=== PATIENT | female | born 1990 | race African-American/Black ===

== ENCOUNTER 2018-07-05 09:15 | Emergency (ER) | payer OTHER ==
[~2018-07-05] VITALS: Wt 88.9 kg
--- NOTE | ~2018-07-05 | EKG ---
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
--- NOTE | ~2018-07-05 | EKG ---
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
[~2018-07-05 09:15] MED LIST: BIRTH CONTROL; CLARITIN-D 10 M1 T21 PO; CLEOCIN HCL150 MG PO; CLINDAMYCIN150 MG PO; DOC-Q-LACE100 MG PO; FLONASE 0.05% 121 EA NAS; MACROBID100 M1 PO; NAPROSYN500 MG PO; NKHM; NO DAILY MEDS; PREDNICOT10 MG PO; PRENATAL1 TA1 PO; PRENATAL1 TA3 PO; Peridex 473 ML473 ML PO; TAMIFLU75 MG PO; TRAMADOL HCL50 MG PO; TRI LINYAH; TYLENOL EXTRA500 MG; VICODIN 5/500 505 MG PO; ZITHROMAX Z PA250 MG PO; ZOFRAN ODT4 MG SL; ZOFRAN4 MG PO; Zofran4 MG PO; [UNRECOGNIZED DRUG - OTHER] IM
[2018-07-05 09:31] LABS: BASO % 0.4 % (0.0-1.0); EOS # 0.1 10*3/uL (0.0-0.4); EOS % 1.3 % (1.0-4.0); HEMOGLOBIN 14.3 g/dl (12.0-16.0); LYMPH # 2.1 10*3/uL (1.3-4.4); LYMPH % 26.3 % (27.0-41.0); MEAN CELL VOLUME 90.5 fl (81.0-99.0); MEAN CORPUSCULAR HGB 30.1 pg (27.0-31.0); MEAN CORPUSCULAR HGB CONC 33.3 g/dl (33.0-37.0); MEAN PLATELET VOLUME 10.9 fl (9.6-12.3); MONO # 0.4 10*3/uL (0.1-1.0); MONO % 5.5 % (3.0-9.0); NEUT # 5.3 10*3/uL (2.3-7.9); PLATELET COUNT AUTOMATED 248 10*3/uL (130-400); RED BLOOD COUNT 4.75 10*6/uL (4.10-5.10); RED CELL DISTRI WIDTH 12.5 % (0-14.5)
[2018-07-05 09:44] LABS: ACT PARTIAL THROMBO TIME 23.7 SECONDS (20.8-31.5)
[2018-07-05 09:49] LABS: ALBUMIN 3.6 gm/dl (3.1-4.5); ALKALINE PHOSPHATASE 80 U/L (45-117); BUN 9 mg/dl (7-24); CHLORIDE 108 mmol/L (98-107); CREATININE 1.04 mg/dL (0.55-1.02); POTASSIUM 4.2 mmol/L (3.5-5.1); SGOT/AST 11 IU/L (3-35); SGPT/ALT 21 U/L (12-78); SODIUM 140 mmol/L (136-145); TOTAL PROTEIN 7.4 gm/dL (6.4-8.2)
[2018-07-05 09:54] LABS: TROPONIN I < 0.015 ng/ml (<0.045)
[2018-07-05] MEDS ORDERED: VISTARIL25 MG PO (13:03)
== END 2018-07-05 13:05 | disposition home or self-care (01) ==
LOC: ED 09:15
PROVIDERS: Emergency Medicine
DX: F41.9 Anxiety disorder, unspecified (principal); R07.89 Other chest pain; Z88.0 Allergy status to penicillin; Z88.1 Allergy status to other antibiotic agents

== ENCOUNTER 2018-07-07 17:13 | Emergency (ER) | payer OTHER ==
--- NOTE | ~2018-07-07 | EKG ---
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
[~2018-07-07 17:13] MED LIST changes: +VISTARIL25 MG PO
[2018-07-07 17:38] LABS: BASO % 0.4 % (0.0-1.0); EOS # 0.2 10*3/uL (0.0-0.4); EOS % 1.4 % (1.0-4.0); HEMATOCRIT 43.1 % (37.0-47.0); HEMOGLOBIN 14.3 g/dl (12.0-16.0); LYMPH # 3.3 10*3/uL (1.3-4.4); LYMPH % 30.6 % (27.0-41.0); MEAN CELL VOLUME 88.9 fl (81.0-99.0); MEAN CORPUSCULAR HGB 29.5 pg (27.0-31.0); MEAN CORPUSCULAR HGB CONC 33.2 g/dl (33.0-37.0); MEAN PLATELET VOLUME 11.3 fl (9.6-12.3); MONO # 0.7 10*3/uL (0.1-1.0); MONO % 6.2 % (3.0-9.0); NEUT # 6.5 10*3/uL (2.3-7.9); NEUT % 60.9 % (47.0-73.0); PLATELET COUNT AUTOMATED 263 10*3/uL (130-400); RED BLOOD COUNT 4.85 10*6/uL (4.10-5.10); RED CELL DISTRI WIDTH 12.2 % (0-14.5); WHITE BLOOD COUNT 10.6 10*3/uL (4.8-10.8)
[2018-07-07 17:49] LABS: ACT PARTIAL THROMBO TIME 23.2 SECONDS (20.8-31.5); INTERNATIONAL NORM RATIO 0.9 (2.0-3.5)
[2018-07-07 17:54] LABS: ALBUMIN 3.5 gm/dl (3.1-4.5); ALKALINE PHOSPHATASE 87 U/L (45-117); BUN 7 mg/dl (7-24); CHLORIDE 107 mmol/L (98-107); CREATININE 0.98 mg/dL (0.55-1.02); LIPASE 101 U/L (73-393); POTASSIUM 4.1 mmol/L (3.5-5.1); SGOT/AST 11 IU/L (3-35); SGPT/ALT 21 U/L (12-78); SODIUM 138 mmol/L (136-145); TOTAL PROTEIN 7.4 gm/dL (6.4-8.2); TROPONIN I < 0.015 ng/ml (<0.045)
[2018-07-07] MEDS ORDERED: NAPROSYN500 MG PO (18:07)
== END 2018-07-07 18:21 | disposition home or self-care (01) ==
LOC: ED 17:13
PROVIDERS: Nurse Practitioner Family
DX: R09.1 Pleurisy (principal); F41.9 Anxiety disorder, unspecified; Z88.0 Allergy status to penicillin; Z88.1 Allergy status to other antibiotic agents; Z79.899 Other long term (current) drug therapy

== ENCOUNTER → 2018-07-15 | Outpatient (CLI) | payer OTHER | END | disposition home or self-care (01) | LOC: RESCLI 01:20 | DX: Z09 Encounter for follow-up examination after completed treatment for conditions other than malignant neoplasm (principal); E66.9 Obesity, unspecified; E55.9 Vitamin D deficiency, unspecified; Z79.899 Other long term (current) drug therapy; Z88.0 Allergy status to penicillin ==

== ENCOUNTER 2019-03-15 19:09 | Emergency (ER) | payer OTHER ==
[~2019-03-15] VITALS: Ht 162.5 cm; Wt 95.3 kg
[2019-03-15] MEDS ORDERED: CLINDAMYCIN HC300 MG PO (19:42)
[2019-03-15] MEDS ORDERED: IBUPROFEN600 MG PO (19:42)
[2019-03-15] MEDS ORDERED: DIFLUCAN150 MG PO (19:43)
== END 2019-03-15 20:19 | disposition home or self-care (01) ==
LOC: ED 19:09
DX: K02.9 Dental caries, unspecified (principal); Z88.0 Allergy status to penicillin; Z88.1 Allergy status to other antibiotic agents; Z79.899 Other long term (current) drug therapy

== ENCOUNTER 2019-04-17 17:16 | Emergency (ER) | payer OTHER ==
[~2019-04-17] VITALS: Ht 162.5 cm; Wt 97.5 kg
[~2019-04-17 17:16] MED LIST changes: +CLINDAMYCIN HC300 MG PO; +DIFLUCAN150 MG PO; +IBUPROFEN600 MG PO
[2019-04-17 18:02] LABS: BILIRUBIN NEGATIVE (NEGATIVE); BLOOD NEGATIVE (NEGATIVE); CLARITY CLEAR (CLEAR); COLOR YELLOW (YELLOW); GLUCOSE NEGATIVE (NEGATIVE); KETONE NEGATIVE (NEGATIVE); LEUKO ESTERASE 1+ (NEGATIVE); NITRITE NEGATIVE (NEGATIVE); SPECIFIC GRAVITY <= 1.005 (1.005-1.030); UROBILINOGEN 0.2 E.U./dl (0.2-1.0)
[2019-04-17 18:06] LABS: BASO % 0.2 % (0.0-1.0); EOS % 0.3 % (1.0-4.0); HEMATOCRIT 40.8 % (37.0-47.0); HEMOGLOBIN 13.4 g/dl (12.0-16.0); LYMPH # 1.4 10*3/uL (1.3-4.4); LYMPH % 11.7 % (27.0-41.0); MEAN CELL VOLUME 91.9 fl (81.0-99.0); MEAN CORPUSCULAR HGB 30.2 pg (27.0-31.0); MEAN CORPUSCULAR HGB CONC 32.8 g/dl (33.0-37.0); MEAN PLATELET VOLUME 10.9 fl (9.6-12.3); MONO # 0.4 10*3/uL (0.1-1.0); MONO % 3.7 % (3.0-9.0); NEUT # 10.1 10*3/uL (2.3-7.9); NEUT % 83.7 % (47.0-73.0); PLATELET COUNT AUTOMATED 260 10*3/uL (130-400); RED BLOOD COUNT 4.44 10*6/uL (4.10-5.10); RED CELL DISTRI WIDTH 12.5 % (0-14.5)
[2019-04-17 18:12] LABS: BACTERIA 1+; EPITHELIAL CELLS TNTC
[2019-04-17 18:22] LABS: ALBUMIN 3.6 gm/dl (3.1-4.5); ALKALINE PHOSPHATASE 77 U/L (45-117); BUN 7 mg/dl (7-24); CHLORIDE 110 mmol/L (98-107); CREATININE 0.98 mg/dL (0.55-1.02); SGOT/AST 15 IU/L (3-35); SGPT/ALT 22 U/L (12-78); SODIUM 140 mmol/L (136-145); TOTAL PROTEIN 6.9 gm/dL (6.4-8.2)
[2019-04-17] MEDS ORDERED: Meclizine25 MG PO (19:40)
[2019-04-17] MEDS ORDERED: MACROBID100 M1 PO (19:40)
== END 2019-04-17 19:48 | disposition home or self-care (01) ==
LOC: ED 17:16
PROVIDERS: Nurse Practitioner Family
DX: N39.0 Urinary tract infection, site not specified (principal); R42 Dizziness and giddiness; G43.909 Migraine, unspecified, not intractable, without status migrainosus; J45.909 Unspecified asthma, uncomplicated; Z88.0 Allergy status to penicillin; Z88.1 Allergy status to other antibiotic agents

== ENCOUNTER 2022-10-07 13:42 | Emergency (ER) | payer MEDICAID ==
[~2022-10-07] VITALS: Wt 90.7 kg
[~2022-10-07 13:42] MED LIST changes: +Meclizine25 MG PO
[2022-10-07 14:58] LABS: BASO % 0.6 % (0.0-1.0); EOS # 0.1 10*3/uL (0.0-0.4); HEMATOCRIT 42.9 % (37.0-47.0); LYMPH % 27.8 % (27.0-41.0); MEAN CELL VOLUME 89.7 fl (81.0-99.0); MEAN CORPUSCULAR HGB 30.3 pg (27.0-31.0); MEAN CORPUSCULAR HGB CONC 33.8 g/dl (33.0-37.0); MEAN PLATELET VOLUME 11.1 fl (9.6-12.3); MONO # 0.4 10*3/uL (0.1-1.0); MONO % 5.1 % (3.0-9.0); NEUT # 4.5 10*3/uL (2.3-7.9); NEUT % 63.8 % (47.0-73.0); PLATELET COUNT AUTOMATED 255 10*3/uL (130-400); RED BLOOD COUNT 4.78 10*6/uL (4.10-5.10); RED CELL DISTRI WIDTH 11.9 % (0-14.5); WHITE BLOOD COUNT 7.1 10*3/uL (4.8-10.8)
[2022-10-07 15:15] LABS: ALKALINE PHOSPHATASE 73 U/L (46-116); BUN 5 mg/dl (9-23); CHLORIDE 108 mmol/L (98-107); POTASSIUM 4.8 mmol/L (3.4-5.1); SGPT/ALT 11 U/L (10-49); TOTAL PROTEIN 6.6 gm/dL (6.0-8.0)
[2022-10-07] MEDS ORDERED: KETOROLAC10 MG PO (16:05)
== END 2022-10-07 16:24 | disposition home or self-care (01) ==
LOC: ED 13:42
PROVIDERS: Student in an Organized Health Care Education/Training Program
DX: G43.909 Migraine, unspecified, not intractable, without status migrainosus (principal); R11.10 Vomiting, unspecified; J45.909 Unspecified asthma, uncomplicated; Z88.0 Allergy status to penicillin; Z88.1 Allergy status to other antibiotic agents; Z98.890 Other specified postprocedural states

== ENCOUNTER 2023-07-23 01:20 | Emergency (ER) | payer MEDICAID ==
[~2023-07-23] VITALS: Ht 172.7 cm; Wt 102.1 kg
[~2023-07-23 01:20] MED LIST changes: +KETOROLAC10 MG PO
[2023-07-23] MEDS ORDERED: LORazepam 1 MG TAB PO ONE (01:25)
== END 2023-07-23 03:16 | disposition home or self-care (01) ==
LOC: ED 01:20
DX: F41.9 Anxiety disorder, unspecified (principal); J45.909 Unspecified asthma, uncomplicated; G43.909 Migraine, unspecified, not intractable, without status migrainosus; Z88.0 Allergy status to penicillin; Z88.1 Allergy status to other antibiotic agents; Z98.890 Other specified postprocedural states

== ENCOUNTER 2023-09-15 18:37 | Emergency (ER) | payer MEDICAID ==
[~2023-09-15] VITALS: Ht 162.5 cm; Wt 104.3 kg
[2023-09-15] MEDS ORDERED: hydrOXYzine pamoate 25 MG CAP PO ONE ×2 (19:05→19:25)
[2023-09-15] MEDS ORDERED: VISTARIL25 MG PO (19:51)
== END 2023-09-15 20:09 | disposition home or self-care (01) ==
LOC: ED 18:37
DX: F41.9 Anxiety disorder, unspecified (principal); R42 Dizziness and giddiness; J45.909 Unspecified asthma, uncomplicated; G43.909 Migraine, unspecified, not intractable, without status migrainosus; Z88.0 Allergy status to penicillin; Z88.1 Allergy status to other antibiotic agents; Z98.890 Other specified postprocedural states

== ENCOUNTER 2024-01-24 13:54 | Emergency (ER) | payer MEDICAID ==
[~2024-01-24] VITALS: Ht 162.5 cm; Wt 104.3 kg
[2024-01-24] MEDS ORDERED: GABAPENTIN400 MG PO (14:07)
[2024-01-24 14:26] LABS: BASO % 0.3 % (0.0-1.0); EOS # 0.2 10*3/uL (0.0-0.4); EOS % 1.4 % (1.0-4.0); LYMPH # 1.8 10*3/uL (1.3-4.4); LYMPH % 17.2 % (27.0-41.0); MEAN CELL VOLUME 90.1 fl (81.0-99.0); MEAN CORPUSCULAR HGB 29.1 pg (27.0-31.0); MEAN CORPUSCULAR HGB CONC 32.3 g/dl (33.0-37.0); MEAN PLATELET VOLUME 10.4 fl (9.6-12.3); MONO # 0.6 10*3/uL (0.1-1.0); MONO % 5.8 % (3.0-9.0); NEUT # 7.7 10*3/uL (2.3-7.9); NEUT % 74.5 % (47.0-73.0); PLATELET COUNT AUTOMATED 302 10*3/uL (130-400); RED BLOOD COUNT 4.77 10*6/uL (4.10-5.10); RED CELL DISTRI WIDTH 12.3 % (0-14.5); WHITE BLOOD COUNT 10.4 10*3/uL (4.8-10.8)
[2024-01-24 14:42] LABS: ALKALINE PHOSPHATASE 65 U/L (46-116); BUN 6 mg/dl (9-23); CHLORIDE 105 mmol/L (98-107); POTASSIUM 3.5 mmol/L (3.4-5.1); SGPT/ALT 10 U/L (5-49)
[2024-01-24 15:03] LABS: BILIRUBIN Negative (Negative); BLOOD 3+ (Negative); CLARITY Clear (Clear); COLOR Yellow (Yellow); GLUCOSE Negative (Negative); KETONE Negative (Negative); LEUKO ESTERASE 1+ (Negative); NITRITE Negative (Negative); PH 5.5 (4.5-8.0); SPECIFIC GRAVITY 1.015 (1.001-1.030); UROBILINOGEN 0.2 E.U./dl (0.0-1.0)
[2024-01-24 15:12] LABS: BACTERIA 2+; RBC 16-20 rbc/hpf (0-2)
[2024-01-24 15:13] LABS: MUCOUS TRACE
[2024-01-24] MEDS ORDERED: SEPTDS PO (15:25)
== END 2024-01-24 15:35 | disposition home or self-care (01) ==
LOC: ED 13:54
PROVIDERS: Physician Assistant Medical
DX: O03.9 Complete or unspecified spontaneous abortion without complication (principal); O23.41 Unspecified infection of urinary tract in pregnancy, first trimester; N39.0 Urinary tract infection, site not specified; G43.909 Migraine, unspecified, not intractable, without status migrainosus; J45.909 Unspecified asthma, uncomplicated; Z88.0 Allergy status to penicillin; Z88.1 Allergy status to other antibiotic agents; Z98.890 Other specified postprocedural states; Z3A.01 Less than 8 weeks gestation of pregnancy

== ENCOUNTER → 2024-02-25 | Outpatient (CLI) | payer MEDICAID ==
[~2024-02-25] MED LIST changes: +GABAPENTIN400 MG PO; +SEPTDS PO
== END | disposition home or self-care (01) ==
LOC: US 09:00
PROVIDERS: ATTEND Nurse Practitioner Women's Health
DX: O20.0 Threatened abortion (principal); N83.291 Other ovarian cyst, right side

== ENCOUNTER 2024-03-04 10:29 | Emergency (ER) | payer MEDICAID ==
[~2024-03-04] VITALS: Ht 162.5 cm; Wt 113.4 kg
[2024-03-04] MEDS ORDERED: MECLIZINE HCL25 M2 PO (10:42)
[2024-03-04] MEDS ORDERED: Ketorolac Tromethamine 15 MG/ML VIAL IV ONE (11:05)
[2024-03-04] MEDS ORDERED: SODIUM CHLORIDE 0.9% 1,000 ML IV ONE (11:05)
[2024-03-04 11:22] LABS: BASO % 0.3 % (0.0-1.0); EOS # 0.1 10*3/uL (0.0-0.4); EOS % 2.1 % (1.0-4.0); HEMATOCRIT 42.3 % (37.0-47.0); LYMPH # 1.3 10*3/uL (1.3-4.4); LYMPH % 22.4 % (27.0-41.0); MEAN CELL VOLUME 90.6 fl (81.0-99.0); MEAN CORPUSCULAR HGB 29.1 pg (27.0-31.0); MEAN CORPUSCULAR HGB CONC 32.2 g/dl (33.0-37.0); MEAN PLATELET VOLUME 10.6 fl (9.6-12.3); MONO # 0.4 10*3/uL (0.1-1.0); MONO % 6.8 % (3.0-9.0); NEUT # 3.9 10*3/uL (2.3-7.9); NEUT % 67.7 % (47.0-73.0); PLATELET COUNT AUTOMATED 237 10*3/uL (130-400); RED BLOOD COUNT 4.67 10*6/uL (4.10-5.10); RED CELL DISTRI WIDTH 12.3 % (0-14.5); WHITE BLOOD COUNT 5.8 10*3/uL (4.8-10.8)
[2024-03-04 11:43] LABS: BILIRUBIN Negative (Negative); BLOOD Negative (Negative); CLARITY Cloudy (Clear); COLOR Yellow (Yellow); GLUCOSE Negative (Negative); KETONE Negative (Negative); LEUKO ESTERASE 3+ (Negative); NITRITE Negative (Negative); PH 5.5 (4.5-8.0); UROBILINOGEN 0.2 E.U./dl (0.0-1.0)
[2024-03-04 11:45] LABS: ALKALINE PHOSPHATASE 73 U/L (46-116); BUN 7 mg/dl (9-23); CHLORIDE 107 mmol/L (98-107); POTASSIUM 4.5 mmol/L (3.4-5.1); SGPT/ALT 16 U/L (5-49); TOTAL PROTEIN 6.6 gm/dL (6.0-8.0)
[2024-03-04 12:00] LABS: BACTERIA 3+; EPITHELIAL CELLS 16-20; WBC TNTC wbc/hpf (0-5)
[2024-03-04] MEDS ORDERED: LEVOFLOXACIN750 M2 PO (12:09)
[2024-03-04] MEDS ORDERED: OXYBUTYNIN5 MG PO (12:09)
== END 2024-03-04 12:24 | disposition home or self-care (01) ==
LOC: ED 10:29
PROVIDERS: Emergency Medicine
DX: N39.0 Urinary tract infection, site not specified (principal); G43.909 Migraine, unspecified, not intractable, without status migrainosus; J45.909 Unspecified asthma, uncomplicated; Z88.0 Allergy status to penicillin; Z88.1 Allergy status to other antibiotic agents; Z98.890 Other specified postprocedural states

== ENCOUNTER → 2024-04-15 | Outpatient (CLI) | payer OTHER ==
[~2024-04-15] MED LIST changes: +LEVOFLOXACIN750 M2 PO; +MECLIZINE HCL25 M2 PO; +OXYBUTYNIN5 MG PO
== END | disposition home or self-care (01) ==
LOC: US 00:25
PROVIDERS: ATTEND Nurse Practitioner Women's Health
DX: N88.8 Other specified noninflammatory disorders of cervix uteri (principal); N92.6 Irregular menstruation, unspecified

== ENCOUNTER 2024-08-09 11:44 | Emergency (ER) | payer OTHER ==
[~2024-08-09] VITALS: Ht 162.5 cm; Wt 106.6 kg
[2024-08-09] MEDS ORDERED: Acetaminophen/Oxycodone 5 MG/325 MG TABLET PO ONE (12:10)
[2024-08-09] MEDS ORDERED: CYCLOBENZAPRINE10 MG PO (13:35)
== END 2024-08-09 16:34 | disposition home or self-care (01) ==
LOC: ED 11:44
DX: S39.012A Strain of muscle, fascia and tendon of lower back, initial encounter (principal); F41.9 Anxiety disorder, unspecified; G43.909 Migraine, unspecified, not intractable, without status migrainosus; J45.909 Unspecified asthma, uncomplicated; Z88.0 Allergy status to penicillin; Z88.1 Allergy status to other antibiotic agents; Z98.890 Other specified postprocedural states; W01.198A Fall on same level from slipping, tripping and stumbling with subsequent striking against other object, initial encounter; Y93.89 Activity, other specified; Y92.89 Other specified places as the place of occurrence of the external cause; Y99.8 Other external cause status

== ENCOUNTER 2024-09-27 20:33 | Emergency (ER) | payer BC ==
[~2024-09-27] VITALS: Ht 162.5 cm; Wt 106.6 kg
[~2024-09-27 20:33] MED LIST changes: +CYCLOBENZAPRINE10 MG PO
[2024-09-27] MEDS ORDERED: HYDROmorphONE Hydrochloride 0.5 MG/0.5 ML SYRINGE IV ONE (20:50)
[2024-09-27] MEDS ORDERED: Ondansetron Hydrochloride 4 MG/2 ML VIAL IV ONE (20:50)
[2024-09-27] MEDS ORDERED: SODIUM CHLORIDE 0.9% 1,000 ML IV ONE (20:50)
[2024-09-27] MEDS ORDERED: methylPREDNISolone sod succ 125 MG VIAL IV ONE (20:50)
[2024-09-27] MEDS ORDERED: Pantoprazole Sodium 40 MG VIAL IV ONE (20:50)
== END 2024-09-27 22:48 | disposition home or self-care (01) ==
LOC: ED 20:33
DX: S19.9XXA Unspecified injury of neck, initial encounter (principal); J45.909 Unspecified asthma, uncomplicated; G43.909 Migraine, unspecified, not intractable, without status migrainosus; Z79.899 Other long term (current) drug therapy; Z88.0 Allergy status to penicillin; Z88.1 Allergy status to other antibiotic agents; X58.XXXA Exposure to other specified factors, initial encounter; Y93.89 Activity, other specified; Y92.89 Other specified places as the place of occurrence of the external cause; Y99.8 Other external cause status

== ENCOUNTER 2024-12-29 21:16 | Emergency (ER) | payer BC ==
[~2024-12-29] VITALS: Ht 162.5 cm; Wt 104.3 kg
[2024-12-29] MEDS ORDERED: ESCITALOPRAM OX20 MG PO (21:46)
[2024-12-29] MEDS ORDERED: diphenhydrAMINE hydrochloride 50 MG/ML VIAL IV ONE (22:00)
[2024-12-29] MEDS ORDERED: SODIUM CHLORIDE 0.9% 1,000 ML IV ONE (22:00)
[2024-12-29 22:02] LABS: BILIRUBIN Negative (Negative); BLOOD Negative (Negative); CLARITY Cloudy (Clear); COLOR Yellow (Yellow); KETONE Trace (Negative); LEUKO ESTERASE 1+ (Negative); NITRITE Negative (Negative); PH 5.5 (4.5-8.0); SPECIFIC GRAVITY 1.025 (1.001-1.030); UROBILINOGEN 1.0 E.U./dl (0.0-1.0)
[2024-12-29 22:11] LABS: EPITHELIAL CELLS 16-20; MUCOUS 2+
== END 2024-12-30 01:07 | disposition home or self-care (01) ==
LOC: ED 21:16
PROVIDERS: Emergency Medicine
DX: G43.909 Migraine, unspecified, not intractable, without status migrainosus (principal); R42 Dizziness and giddiness; F41.9 Anxiety disorder, unspecified; Z88.0 Allergy status to penicillin; Z88.1 Allergy status to other antibiotic agents; Z79.899 Other long term (current) drug therapy